=== PATIENT | female | born 1970 | race Hispanic/Latino ===

== ENCOUNTER 2024-09-10 14:40 | Outpatient (CLI) | payer BC, OTHER ==
[2024-09-10 15:58] LABS: Hematocrit 41.6 % (34.9-44.5); Mean Corpuscular HGB CONC 33.7 g/dL (32.0-36.0); Mean Corpuscular Hemoglobin 28.7 pg (27.0-33.0); Mean Corpuscular Volume 85.4 fL (81.6-98.3); Platelet Count 354 10x3/uL (150-450); Red Blood Cell (RBC) Count 4.87 10x6/uL (3.90-5.03); White Blood Cell (WBC) Count 8.78 10x3/uL (3.5-10.5)
[2024-09-10 17:31] LABS: BHCG - Serum Negative (NEGATIVE); Pregs Control Background? CLEAR/WHITE (CLR/WHITE); Pregs Control Bar Appear? YES (CONTROL BAR)
== END 2024-09-10 14:41 | disposition home or self-care (01) ==
LOC: CSHLAB 14:40
PROVIDERS: ATTEND Obstetrics & Gynecology
DX: Z01.812 Encounter for preprocedural laboratory examination (principal); D25.1 Intramural leiomyoma of uterus; D25.2 Subserosal leiomyoma of uterus
CPT/HCPCS: 84703; 85027; 86850; 86900; 86901